=== PATIENT | male | born 1990 | race Caucasian/White ===

== ENCOUNTER 2018-03-28 14:43 | Emergency (ER) | payer OTHER ==
[~2018-03-28] VITALS: Ht 165.1 cm; Wt 74.8 kg
== END 2018-03-28 19:40 | disposition home or self-care (01) ==
LOC: ER 14:43 → EDSEX 15:24 → ER 15:24
DX: N41.8 Other inflammatory diseases of prostate (principal)

== ENCOUNTER 2020-11-05 08:59 | Emergency (ER) | payer OTHER ==
[~2020-11-05] VITALS: Ht 175.3 cm; Wt 73.9 kg
== END 2020-11-05 14:25 | disposition home or self-care (01) ==
LOC: ER 08:59
DX: U07.1 COVID-19 (principal); B33.8 Other specified viral diseases